=== PATIENT | male | born 1965 | race Two or more races ===

== ENCOUNTER 2024-02-28 09:15 | Inpatient (IN) | payer OTHER ==
[~2024-02-28] VITALS: Ht 172.7 cm; Wt 0.5 kg
[2024-02-28] MEDS ORDERED: MIRTAZAPINE30 M1 PO (10:30)
[2024-02-28] MEDS ORDERED: RESTORIL22.5 MG PO (10:30)
[2024-02-28] MEDS ORDERED: LORAZEPAM0.5 MG PO (10:30)
[2024-02-28 10:52] LABS: URINE APPEARANCE Clear; URINE BILIRRUBIN Negative (NEGATIVE); URINE BLOOD Negative; URINE COLOR Yellow; URINE GLUCOSE Negative (NEGATIVE); URINE KETONE Negative (NEGATIVE); URINE LEUKOCYTE Negative; URINE NITRATE Negative; URINE PROTEIN Trace (NEGATIVE)
[2024-02-28 10:53] LABS: HEMATOCRIT 43.2 % (39.0-48.0); HEMOGLOBIN 14.6 g/dL (13-16.00); MEAN CELL VOLUME 92.8 fL (80.0-100.00); MEAN CORPUSCULAR HEMOGLOBIN 31.3 pg (27.00-32.0); MEAN CORPUSCULAR HGB CONC 33.7 g/dl (32.0-36.0); PLATELET COUNT 235 K/uL (150-450); RED BLOOD COUNT 4.66 M/uL (4.00-6.00); RED CELL DISTRIBUTION WIDTH 13.6 % (11.5-14.5)
[2024-02-28 10:56] LABS: URINE RBC 34.8 uL (0.0-20.8)
[2024-02-28 11:01] LABS: URINE BACTERIA 2.5 uL (0.0-1933); URINE EPITHELIAL CELLS 0.4 uL (0.0-38.8)
[2024-02-28 11:15] LABS: INR 1.03; PARTIAL THROMBOPLASTIN TIME 26.6 SECONDS (22.0-34.0); PROTHROMBIN TIME 11.2 SECONDS (9.0-11.5)
[2024-02-28 12:16] LABS: ALBUMIN 4.1 gm/dL (3.4-5.0); BILIRUBIN TOTAL 0.37 mg/dL (0.3-1.2); CALCIUM 9.6 mg/dL (8.5-10.1); CREATININE SERUM 0.79 mg/dL (0.70-1.30); GFR 100.74; GLOBULINA 3.6 G/DL (2.4-3.5); POTASSIUM 4.3 mEq/L (3.5-5.1); TOTAL PROTEIN 7.7 gm/dL (6.4-8.2)
[2024-03-06] MEDS ORDERED: METRONIDAZOLE/SODIUM CHLORIDE 500 MG/100 ML PIGGYBACK IV ONE (14:30)
[2024-03-06] MEDS ORDERED: CEFTRIAXONE SODIUM 2,000 MG VIAL IV ONE (14:30)
[2024-03-06] MEDS ORDERED: ABATINEX680 MG (15:29)
[2024-03-06] MEDS ORDERED: SERTRALINE HCL50 MG (15:29)
[2024-03-06] MEDS ORDERED: RESTORIL30 MG (15:29)
[2024-03-06] MEDS ORDERED: DEXLANSOPRAZOLE60 MG (15:29)
[2024-03-06] MEDS ORDERED: MIRTAZAPINE15 MG (15:29)
[2024-03-06] MEDS ORDERED: HYOSCYAMINE0.125 MG (15:29)
[2024-03-06] MEDS ORDERED: BACLOFEN20 MG (15:30)
[2024-03-06] MEDS ORDERED: ROSUVASTATIN CA40 MG (15:30)
[2024-03-06] MEDS ORDERED: ONDANSETRON HCL4 MG (15:30)
[2024-03-06] MEDS ORDERED: MORPHINE SULFATE 4 MG/ML CARTRIDGE IV PRN (18:00)
[2024-03-06] MEDS ORDERED: OxyCODONE HCL 5 MG TABLET (ROXICODONE) PO PRN (18:00)
[2024-03-06] MEDS ORDERED: RINGERS SOLUTION,LACTATED 1,000 ML IV SCH (18:00)
[2024-03-06] MEDS ORDERED: ONDANSETRON HCL 2 MG/ML VIAL IV PRN (18:00)
[2024-03-06] MEDS ORDERED: DEXTROSE 50 % IN WATER 0.5 G/ML DISP.SYRIN IV PRN (18:00)
[2024-03-06] MEDS ORDERED: MORPHINE SULFATE 4 MG/ML VIAL IV ONE ×3 (18:25→19:55)
[2024-03-06] MEDS ORDERED: ACETAMINOPHEN 500 MG GEL..CAP PO SCH (20:00)
[2024-03-06 20:58] LABS: HEMATOCRIT 38.7 % (39.0-48.0); MEAN CELL VOLUME 90.9 fL (80.0-100.00); MEAN CORPUSCULAR HEMOGLOBIN 30.7 pg (27.00-32.0); MEAN CORPUSCULAR HGB CONC 33.7 g/dl (32.0-36.0); PLATELET COUNT 195 K/uL (150-450); RED BLOOD COUNT 4.25 M/uL (4.00-6.00); RED CELL DISTRIBUTION WIDTH 13.7 % (11.5-14.5)
[2024-03-06] MEDS ORDERED: FAMOTIDINE/PF 20 MG/2 ML VIAL IV PUSH SCH (21:00)
[2024-03-06] MEDS ORDERED: CELECOXIB 200 MG CAPSULE PO SCH (21:00)
[2024-03-07 00:27] VITALS: BP 133/75; O2SAT 98
[2024-03-07] MEDS ORDERED: GABAPENTIN 300 MG CAPSULE PO SCH (01:00)
[2024-03-07] MEDS ORDERED: METOCLOPRAMIDE HCL 5 MG/ML VIAL IV SCH (01:00)
[2024-03-07 07:26] LABS: HEMATOCRIT 37.7 % (39.0-48.0); HEMOGLOBIN 12.8 g/dL (13-16.00); MEAN CELL VOLUME 90.5 fL (80.0-100.00); MEAN CORPUSCULAR HEMOGLOBIN 30.8 pg (27.00-32.0); PLATELET COUNT 201 K/uL (150-450); RED BLOOD COUNT 4.17 M/uL (4.00-6.00); RED CELL DISTRIBUTION WIDTH 13.5 % (11.5-14.5)
[2024-03-07 08:00] VITALS: BP 143/80; O2SAT 97
[2024-03-07 08:55] LABS: ALBUMIN 3.2 gm/dL (3.4-5.0); CALCIUM 8.8 mg/dL (8.5-10.1); CREATININE SERUM 0.67 mg/dL (0.70-1.30); GFR 121.83; MAGNESIUM 1.8 mg/dL (1.8-2.4); PHOSPHOROUS 3.4 mg/dL (2.5-4.9); POTASSIUM 3.66 mEq/L (3.5-5.1)
[2024-03-07] MEDS ORDERED: LACTOBACILLUS ACIDOPHILUS 1 CAP CAP PO SCH (09:00)
[2024-03-07] MEDS ORDERED: HYOSCYAMINE SULFATE 0.125 MG TAB.SUBL SL SCH (09:00)
[2024-03-07] MEDS ORDERED: ENOXAPARIN SODIUM 40 MG/0.4 ML SYRINGE SUBCUTANEO SCH (17:00)
[2024-03-07] MEDS ORDERED: POLYETHYLENE GLYCOL 3350 17 GM BLIST.PACK PO SCH (17:00)
[2024-03-07 18:28] VITALS: BP 132/69; O2SAT 97
[2024-03-08 01:29] VITALS: BP 128/66; O2SAT 94
[2024-03-08 08:06] VITALS: BP 143/81; O2SAT 97
[2024-03-08] MEDS ORDERED: ENOXAPARIN SODIUM 40 MG/0.4 ML SYRINGE SUBCUTANEO SCH (09:00)
[2024-03-08] MEDS ORDERED: LEVSIN/SL0.125 MG SL (09:03)
[2024-03-08] MEDS ORDERED: INTESTINEX680 M1 PO (09:03)
[2024-03-08] MEDS ORDERED: CELEBREX200MG PO (09:05)
[2024-03-08 16:18] VITALS: BP 164/85; O2SAT 96
[2024-03-09 01:00] VITALS: BP 140/82; O2SAT 97
[2024-03-09 08:23] VITALS: BP 157/82; O2SAT 98
[2024-03-09] MEDS ORDERED: ACETAMINOPHEN500 M2 PO (10:38)
[2024-03-09] MEDS ORDERED: NEURONTIN300 MG PO (10:38)
== END 2024-03-09 14:54 | disposition home or self-care (01) | DRG 329 ==
LOC: SURH 03-06 08:45 → O/R 03-06 09:05 → SURG 03-06 09:05 → SURH 03-06 09:15 → SURG 03-06 19:28
PROVIDERS: ADMIT Surgery; ATTEND Surgery
PROC: 0DBP4ZZ Excision of Rectum, Percutaneous Endoscopic Approach (ICD-10-PCS; 2024-03-06)
PROC: 0TN74ZZ Release Left Ureter, Percutaneous Endoscopic Approach (ICD-10-PCS; 2024-03-06)
PROC: 0DJD8ZZ Inspection of Lower Intestinal Tract, Via Natural or Artificial Opening Endoscopic (ICD-10-PCS; 2024-03-06)
PROC: 0DTN4ZZ Resection of Sigmoid Colon, Percutaneous Endoscopic Approach (ICD-10-PCS; principal; 2024-03-06 08:45)
DX: K57.20 Diverticulitis of large intestine with perforation and abscess without bleeding (principal); K68.2 Retroperitoneal fibrosis; K59.09 Other constipation; K66.0 Peritoneal adhesions (postprocedural) (postinfection); K62.4 Stenosis of anus and rectum; K62.89 Other specified diseases of anus and rectum

== ENCOUNTER 2024-03-27 09:14 | Inpatient (IN) | payer OTHER ==
[~2024-03-27] VITALS: Ht 172.7 cm; Wt 63.5 kg
[~2024-03-27 09:14] MED LIST: ABATINEX680 MG; ACETAMINOPHEN500 M2 PO; BACLOFEN20 MG; CELEBREX200MG PO; DEXLANSOPRAZOLE60 MG; HYOSCYAMINE0.125 MG; INTESTINEX680 M1 PO; LEVSIN/SL0.125 MG SL; LORAZEPAM0.5 MG PO; MIRTAZAPINE15 MG; MIRTAZAPINE30 M1 PO; NEURONTIN300 MG PO; ONDANSETRON HCL4 MG; RESTORIL22.5 MG PO; RESTORIL30 MG; ROSUVASTATIN CA40 MG; SERTRALINE HCL50 MG
--- NOTE | 2024-03-27 09:36 | NUR ---
PTE ALERTA Y ORIENTADO X3 QUIEN REFIERE VENIR POR DOLOR DE NELIDA CIRUGIA QUE LE REALIZARON EN EL MES DE OCTUBRE. NO SE OBSERVA SUPURANDO. PETER SOLO REFIERE NAUSEAS, DOLOR Y ANSIEDAD
[2024-03-27] MEDS ORDERED: MEPERIDINE HCL 25 MG/ML AMPUL IV ONE (11:15)
[2024-03-27] MEDS ORDERED: FAMOTIDINE/PF 20 MG/2 ML VIAL IV ONE (11:15)
[2024-03-27] MEDS ORDERED: LACTOBACILLUS ACIDOPHILUS 1 CAP CAP PO ONE (11:15)
--- NOTE | 2024-03-27 12:08 | NUR ---
PACIENTE EVALUADO POR QUIEN ORDENA TRATAMIENTO MEDICO, SE LE ORIENTA A PACIENTE SOBRE EL MISMO Y REFIERE ENTENDER, SE LE COLECTAN MUESTRAS DE LABORATORIO Y SE CANALIZA BAJO MEDIDAS ASEPTICAS, SE LE ADMINSITRAN MEDICAMENTOS HERNAN ORDEN, PACIENTE TOLERA Y NO PRESENTA REACCION ADVERSA. SE UBICA PACIENTE EN PASILLO.
[2024-03-27] MEDS ORDERED: ONDANSETRON HCL 2 MG/ML VIAL IV ONE (12:15)
[2024-03-27 12:26] LABS: HEMATOCRIT 41.6 % (39.0-48.0); HEMOGLOBIN 14.1 g/dL (13-16.00); MEAN CELL VOLUME 90.3 fL (80.0-100.00); MEAN CORPUSCULAR HEMOGLOBIN 30.7 pg (27.00-32.0); PLATELET COUNT 314 K/uL (150-450)
[2024-03-27 12:35] LABS: ERYTHROCYTE SEDIMENTATION RATE 56 mm/hr
[2024-03-27 12:37] LABS: CALCIUM 9.4 mg/dL (8.5-10.1); CREATININE SERUM 0.89 mg/dL (0.70-1.30); GFR 87.79; POTASSIUM 3.71 mEq/L (3.5-5.1)
[2024-03-27 12:38] LABS: C-REACTIVE PROTEIN 2.94 MG/DL (0.00-0.29)
[2024-03-27] MEDS ORDERED: RINGERS SOLUTION,LACTATED 1,000 ML IV SCH (15:45)
[2024-03-27] MEDS ORDERED: GABAPENTIN 300 MG CAPSULE PO PRN (15:45)
[2024-03-27] MEDS ORDERED: CIPROFLOXACIN IN 5 % DEXTROSE 400 MG/200 ML PIGGYBAG IV SCH (17:00)
[2024-03-27] MEDS ORDERED: METOCLOPRAMIDE HCL 5 MG/ML VIAL IV SCH (17:00)
[2024-03-27] MEDS ORDERED: HYOSCYAMINE SULFATE 0.125 MG TAB.SUBL SL SCH (17:00)
[2024-03-27] MEDS ORDERED: METRONIDAZOLE/SODIUM CHLORIDE 500 MG/100 ML PIGGYBACK IV SCH (17:00)
[2024-03-27 17:22] LABS: HEMATOCRIT 41.7 % (39.0-48.0); HEMOGLOBIN 14.3 g/dL (13-16.00); MEAN CORPUSCULAR HEMOGLOBIN 30.9 pg (27.00-32.0); MEAN CORPUSCULAR HGB CONC 34.3 g/dl (32.0-36.0); PLATELET COUNT 306 K/uL (150-450); RED BLOOD COUNT 4.63 M/uL (4.00-6.00); RED CELL DISTRIBUTION WIDTH 14.3 % (11.5-14.5)
[2024-03-27 17:37] LABS: INR 1.05; PARTIAL THROMBOPLASTIN TIME 28.8 SECONDS (22.0-34.0); PROTHROMBIN TIME 11.4 SECONDS (9.0-11.5)
[2024-03-27 19:05] VITALS: BP 133/85; O2SAT 98
[2024-03-28 00:36] VITALS: BP 130/73; O2SAT 98
[2024-03-28 07:14] LABS: HEMOGLOBIN 13.1 g/dL (13-16.00); MEAN CELL VOLUME 91.7 fL (80.0-100.00); MEAN CORPUSCULAR HEMOGLOBIN 30.8 pg (27.00-32.0); MEAN CORPUSCULAR HGB CONC 33.6 g/dl (32.0-36.0); PLATELET COUNT 267 K/uL (150-450); RED BLOOD COUNT 4.26 M/uL (4.00-6.00); RED CELL DISTRIBUTION WIDTH 14.3 % (11.5-14.5)
[2024-03-28 08:00] VITALS: BP 124/79; O2SAT 97
[2024-03-28 08:13] LABS: ALBUMIN 3.4 gm/dL (3.4-5.0); CALCIUM 8.7 mg/dL (8.5-10.1); CREATININE SERUM 0.91 mg/dL (0.70-1.30); GFR 85.57; MAGNESIUM 2.1 mg/dL (1.8-2.4); PHOSPHOROUS 3.6 mg/dL (2.5-4.9); POTASSIUM 4.02 mEq/L (3.5-5.1)
[2024-03-28] MEDS ORDERED: LACTOBACILLUS ACIDOPHILUS 1 CAP CAP PO SCH (09:00)
[2024-03-28] MEDS ORDERED: LORazepam 0.5 MG TABLET PO PRN (15:00)
[2024-03-28 16:28] VITALS: BP 111/72; O2SAT 96
[2024-03-28] MEDS ORDERED: MIRTAZAPINE 30 MG PO SCH (17:00)
[2024-03-28] MEDS ORDERED: TRAMADOL HCL 50 MG TABLET PO PRN (17:15)
[2024-03-28] MEDS ORDERED: TEMAZEPAM 15 MG CAPSULE PO SCH (21:00)
[2024-03-29] VITALS: BP 120/72; O2SAT 96
[2024-03-29 08:38] VITALS: BP 122/80; O2SAT 97
[2024-03-29] MEDS ORDERED: BACLOFEN 10 MG TABLET PO SCH (09:00)
[2024-03-29 11:22] LABS: CALCIUM 9.3 mg/dL (8.5-10.1); CHOL HDL RATIO 3.6 (0-5.0); CREATININE SERUM 0.85 mg/dL (0.70-1.30); GFR 92.58; POTASSIUM 3.7 mEq/L (3.5-5.1)
[2024-03-29 16:00] VITALS: BP 123/72; O2SAT 97
[2024-03-29] MEDS ORDERED: AA 4.25%/CALCIUM/LYTES/DEX 10% 1,000 ML CENTRAL SCH (17:00)
[2024-03-29] MEDS ORDERED: AMINO ACIDS 4.25%/DEXTROSE 10% 1,000 ML CENTRAL SCH (17:00)
[2024-03-30 01:00] VITALS: BP 115/68; O2SAT 98
[2024-03-30 08:00] VITALS: BP 145/84; O2SAT 96
[2024-03-30] MEDS ORDERED: FAMOTIDINE/PF 20 MG in 0.9 % SODIUM CHLORIDE 100 ML IV SCH (09:00)
[2024-03-30] MEDS ORDERED: ENOXAPARIN SODIUM 40 MG/0.4 ML SYRINGE SUBCUTANEO SCH (09:00)
[2024-03-30 16:48] VITALS: BP 122/86; O2SAT 95
[2024-03-31 00:15] VITALS: BP 129/73; O2SAT 98
[2024-03-31 08:01] LABS: HEMATOCRIT 38.4 % (39.0-48.0); HEMOGLOBIN 12.7 g/dL (13-16.00); MEAN CELL VOLUME 92.7 fL (80.0-100.00); MEAN CORPUSCULAR HEMOGLOBIN 30.7 pg (27.00-32.0); MEAN CORPUSCULAR HGB CONC 33.1 g/dl (32.0-36.0); PLATELET COUNT 254 K/uL (150-450); RED BLOOD COUNT 4.14 M/uL (4.00-6.00); RED CELL DISTRIBUTION WIDTH 13.4 % (11.5-14.5)
[2024-03-31 08:22] LABS: ALBUMIN 3.4 gm/dL (3.4-5.0); BILIRUBIN TOTAL 0.56 mg/dL (0.3-1.2); CALCIUM 8.7 mg/dL (8.5-10.1); CREATININE SERUM 0.77 mg/dL (0.70-1.30); GFR 103.76; GLOBULINA 3.1 G/DL (2.4-3.5); TOTAL PROTEIN 6.5 gm/dL (6.4-8.2)
[2024-03-31 08:44] VITALS: BP 137/76; O2SAT 97
[2024-03-31 17:00] VITALS: BP 119/65; O2SAT 97
[2024-04-01 00:39] VITALS: BP 142/86; O2SAT 98
[2024-04-01 06:26] LABS: HEMOGLOBIN 13.4 g/dL (13-16.00); MEAN CELL VOLUME 92.1 fL (80.0-100.00); MEAN CORPUSCULAR HEMOGLOBIN 30.8 pg (27.00-32.0); MEAN CORPUSCULAR HGB CONC 33.4 g/dl (32.0-36.0); PLATELET COUNT 231 K/uL (150-450); RED BLOOD COUNT 4.34 M/uL (4.00-6.00); RED CELL DISTRIBUTION WIDTH 13.9 % (11.5-14.5)
[2024-04-01 07:04] LABS: INR 1.15; PROTHROMBIN TIME 12.4 SECONDS (9.0-11.5)
[2024-04-01 07:19] LABS: ALBUMIN 3.5 gm/dL (3.4-5.0); BILIRUBIN TOTAL 0.34 mg/dL (0.3-1.2); BILIRUBIN,CONJUGATED 0.1 mg/dL (0.0-0.2); BILIRUBIN,UNCONJUGATED 0.24 mg/dL (0.0-0.6); CALCIUM 8.8 mg/dL (8.5-10.1); CHOL HDL RATIO 3.6 (0-5.0); CREATININE SERUM 0.86 mg/dL (0.70-1.30); GFR 91.34; GLOBULINA 3.3 G/DL (2.4-3.5); MAGNESIUM 1.7 mg/dL (1.8-2.4); POTASSIUM 3.6 mEq/L (3.5-5.1); TOTAL PROTEIN 6.8 gm/dL (6.4-8.2)
[2024-04-01 08:00] VITALS: BP 147/83; O2SAT 96
[2024-04-01 16:10] VITALS: BP 146/88; O2SAT 97
[2024-04-02] VITALS: BP 104/70; O2SAT 96
[2024-04-02 08:00] VITALS: BP 149/72; O2SAT 100
[2024-04-02 08:58] LABS: UREA CLEARANCE 30.6 ML/MIN
[2024-04-02] MEDS ORDERED: POLYETHYLENE GLYCOL 3350 17 GM BLIST.PACK PO SCH (09:49)
[2024-04-02 16:00] VITALS: BP 170/90; O2SAT 98
[2024-04-03 00:19] VITALS: BP 132/73; O2SAT 99
[2024-04-03 06:51] LABS: CALCIUM 8.7 mg/dL (8.5-10.1); CREATININE SERUM 0.78 mg/dL (0.70-1.30); GFR 102.23; POTASSIUM 3.59 mEq/L (3.5-5.1)
[2024-04-03 07:48] VITALS: BP 146/82; O2SAT 100
[2024-04-03] MEDS ORDERED: METRONIDAZOLE500 MG PO (09:45)
[2024-04-03] MEDS ORDERED: CIPRO500 MG PO (09:45)
== END 2024-04-03 11:42 | disposition home or self-care (01) | DRG 373 ==
LOC: ER 09:16 → SEC-K 16:59 → SURG 16:59
PROVIDERS: General Practice; Internal Medicine; Surgery; ADMIT Surgery; ATTEND Surgery
PROC: BW21YZZ Computerized Tomography (CT Scan) of Abdomen and Pelvis using Other Contrast (ICD-10-PCS; principal; 2024-03-27)
PROC: 02HV33Z Insertion of Infusion Device into Superior Vena Cava, Percutaneous Approach (ICD-10-PCS; 2024-03-28)
PROC: BW21YZZ Computerized Tomography (CT Scan) of Abdomen and Pelvis using Other Contrast (ICD-10-PCS; 2024-04-01)
DX: K65.1 Peritoneal abscess (principal); F17.200 Nicotine dependence, unspecified, uncomplicated

== ENCOUNTER 2024-04-27 09:00 | Emergency (ER) | payer OTHER ==
[~2024-04-27] VITALS: Ht 172.7 cm; Wt 63.5 kg
[~2024-04-27 09:00] MED LIST changes: +CIPRO500 MG PO; +METRONIDAZOLE500 MG PO
[2024-04-27] MEDS ORDERED: 0.9 % SODIUM CHLORIDE 1,000 ML IV SCH (11:15)
[2024-04-27] MEDS ORDERED: ONDANSETRON 4 MG TAB.RAPDIS PO ONE (11:15)
[2024-04-27 12:00] LABS: HEMATOCRIT 40.9 % (39.0-48.0); HEMOGLOBIN 13.6 g/dL (13-16.00); MEAN CELL VOLUME 90.9 fL (80.0-100.00); MEAN CORPUSCULAR HEMOGLOBIN 30.2 pg (27.00-32.0); MEAN CORPUSCULAR HGB CONC 33.3 g/dl (32.0-36.0); PLATELET COUNT 214 K/uL (150-450)
[2024-04-27 12:21] LABS: ALBUMIN 3.8 gm/dL (3.4-5.0); BILIRUBIN TOTAL 0.66 mg/dL (0.3-1.2); CALCIUM 8.7 mg/dL (8.5-10.1); CREATININE SERUM 0.76 mg/dL (0.70-1.30); GFR 105.34; GLOBULINA 3.4 G/DL (2.4-3.5); POTASSIUM 4.31 mEq/L (3.5-5.1); TOTAL PROTEIN 7.2 gm/dL (6.4-8.2)
[2024-04-27 12:35] LABS: URINE APPEARANCE Clear; URINE BACTERIA 7.3 uL (0.0-1933); URINE BILIRRUBIN Negative (NEGATIVE); URINE BLOOD Negative; URINE COLOR Yellow; URINE GLUCOSE Negative (NEGATIVE); URINE KETONE Negative (NEGATIVE); URINE LEUKOCYTE Negative; URINE NITRATE Negative; URINE PROTEIN Negative (NEGATIVE); URINE RBC 11.7 uL (0.0-20.8)
[2024-04-27 12:52] LABS: URINE CAST 0.14 uL (0.0-1.40); URINE EPITHELIAL CELLS 0.6 uL (0.0-38.8); URINE WBC 1.7 uL (0.0-23.2)
== END 2024-04-27 19:01 | disposition home or self-care (01) ==
LOC: ER 09:00
PROVIDERS: Emergency Medicine
DX: R10.9 Unspecified abdominal pain (principal)
CPT/HCPCS: 36415; 74177; 96365; 96366; 99284; J7030; Q9965